=== PATIENT | female | born 1990 | race Caucasian/White ===

== ENCOUNTER 2018-05-19 03:37 | Inpatient (IN) | payer OTHER ==
[2018-05-19] MEDS ORDERED: MISOPROSTOL 200 MCG TAB PR (04:30)
[2018-05-19] MEDS ORDERED: CARBOPROST 250 MCG INJ IM (04:30)
[2018-05-19] MEDS ORDERED: IBUPROFEN 600 MG TAB PO (04:30)
[2018-05-19] MEDS: LACTATED RINGER'S 1,000 ML IV* (04:30)
[2018-05-19] MEDS ORDERED: OXYTOCIN 30 UNITS/LR 500 ML IV ×2 (04:30)
[2018-05-19] MEDS ORDERED: LIDOCAINE 1% (MPF) 30 ML INJ INJ (04:30)
[2018-05-19] MEDS ORDERED: METHYLERGONOVINE 0.2 MG INJ IM (04:30)
[2018-05-19 05:18] LABS: ADD MAN DIFF? NO
[2018-05-19 05:23] LABS: WHITE BLOOD COUNT 7.4 10^3/ul (4.8-10.8)
[2018-05-19 05:23] LABS: BASOPHILS % 0.3 % (0.0-2.0); EOSINOPHILS # 0.1 10^3/ul (0.0-0.5); EOSINOPHILS % 0.8 % (0.0-7.0); HEMATOCRIT 32.5 % (37.0-47.0); HEMOGLOBIN 10.1 g/dl (12.0-16.0); LYMPHOCYTES # 2.7 10^3/ul (0.8-2.9); MEAN CORPUSCULAR HEMOGLOBIN 27.3 pg (29.0-33.0); MEAN CORPUSCULAR HGB CONC 31.1 g/dl (32.0-37.0); MEAN CORPUSCULAR VOLUME 87.8 fl (82.0-101.0); MEAN PLATELET VOLUME 11.2 fl (7.4-10.4); MONOCYTE # 0.5 10^3/ul (0.3-0.9); MONOCYTES % 6.6 % (0.0-11.0); NEUTROPHIL # 4.1 10^3/ul (1.6-7.5); NEUTROPHILS % 55.9 % (39.0-77.0); NUCLEATED RED BLOOD CELLS% 0.3 /100WBC (0.0-0.0); PLATELET COUNT 270 10^3/UL (140-415); RED CELL DISTRIBUTION WIDTH 16.7 % (11.5-14.5)
[2018-05-19] MEDS: AMPICILLIN 2 GM/NS (PMX) 100 ML IV (05:26)
[2018-05-19 05:46] LABS: INR 0.98; PROTIME 13.1 Sec (11.9-14.9)
[2018-05-19 05:47] LABS: PARTIAL THROMBOPLASTIN TIME 26.2 Sec (25.0-35.0)
[2018-05-19 05:51] LABS: ALANINE AMINOTRANSFERASE 28 IU/L (13-69); ALBUMIN 3.2 g/dl (3.3-4.9); ALKALINE PHOSPHATASE 216 IU/L (42-121); ANION GAP 11 (8-16); ASPARTATE AMINO TRANSFERASE 26 IU/L (15-46); BILIRUBIN,INDIRECT 0.3 mg/dl (0-1.1); BILIRUBIN,TOTAL 0.3 mg/dl (0.2-1.3); BLOOD UREA NITROGEN 9 mg/dl (7-20); CALCIUM 8.8 mg/dl (8.4-10.2); CARBON DIOXIDE 22 mmol/L (21-31); CHLORIDE 112 mmol/L (97-110); CREATININE 0.53 mg/dl (0.44-1.00); GLUCOSE 78 mg/dl (70-220); POTASSIUM 3.9 mmol/L (3.5-5.1); SODIUM 141 mmol/L (135-144); TOTAL PROTEIN 6.4 g/dl (6.1-8.1)
[2018-05-19 06:22] LABS: HEPATITIS B SURFACE ANTIGEN NEGATIVE (NEGATIVE)
[2018-05-19 07:45] LABS: ADD UMIC YES; UR ASCORBIC ACID NEGATIVE (NEGATIVE); UR BACTERIA FEW /HPF (NONE SEEN); UR BILIRUBIN (Dip) NEGATIVE (NEGATIVE); UR BLOOD (Dip) 3+ mg/dL (NEGATIVE); UR CLARITY CLOUDY (CLEAR); UR COLOR YELLOW (YELLOW); UR GLUCOSE (Dip) NEGATIVE (NEGATIVE); UR KETONES (Dip) NEGATIVE (NEGATIVE); UR LEUKOCYTE ESTERASE (Dip) NEGATIVE Leu/ul (NEGATIVE); UR MUCUS FEW /HPF (NONE SEEN); UR NITRITE (Dip) NEGATIVE (NEGATIVE); UR RBC > 182 /HPF (0-5); UR SPECIFIC GRAVITY (Dip) 1.024 (1.003-1.030); UR SQUAMOUS EPITHELIAL CELL MANY /HPF (FEW); UR TOTAL PROTEIN (Dip) 2+ mg/dl (NEGATIVE); UR UROBILINOGEN (Dip) NEGATIVE (NEGATIVE); UR WBC 11 /HPF (0-5)
[2018-05-19 07:58] LABS: AMPHETAMINE/METHAMPHETAMINE Negative (NEGATIVE); BARBITURATES Negative (NEGATIVE); BENZODIAZEPINES Negative (NEGATIVE); CANNABINOIDS Negative (NEGATIVE); COCAINE Negative (NEGATIVE); OPIATES Negative (NEGATIVE)
[2018-05-19] MEDS: BUTORPHANOL 2 MG INJ IV (08:10)
[2018-05-19] MEDS: AMPICILLIN 1 GM/NS (PMX) 50 ML IV (10:22)
[2018-05-19] MEDS: OXYTOCIN 30 UNITS/LR 500 ML IV ×3 (10:41→14:56)
[2018-05-19] MEDS: LACTATED RINGER'S 1,000 ML IV (12:18)
[2018-05-19] MEDS ORDERED: OXYCODONE/ASPIRIN (4.88/325) TAB PO ×2 (15:00)
[2018-05-19] MEDS ORDERED: LANOLIN 7 GM TUBE TOP (15:00)
[2018-05-19] MEDS ORDERED: BENZOCAINE 20% 56 ML SPRAY TOP (15:00)
[2018-05-19] MEDS ORDERED: ONDANSETRON 4 MG INJ IV (15:00)
[2018-05-19] MEDS ORDERED: HYDROCODONE/APAP (5/325) TAB PO ×2 (15:00)
[2018-05-19] MEDS ORDERED: WITCH HAZEL/GLYCERIN PAD PR (15:00)
[2018-05-19] MEDS ORDERED: DIBUCAINE 1% 30 GM OINT PR (15:00)
[2018-05-19] MEDS ORDERED: ACETAMINOPHEN 325 MG TAB PO (15:00)
[2018-05-19] MEDS: IBUPROFEN 600 MG TAB PO ×2 (17:46→23:32)
[2018-05-19] MEDS: SENNA/DOCUSATE NA (8.6MG/50MG) TAB PO (20:47)
[2018-05-19] MEDS: DIPHENHYDRAMINE 50 MG INJ IM (23:32)
[2018-05-20] MEDS: IBUPROFEN 600 MG TAB PO ×3 (05:43→17:24)
[2018-05-20 07:20] LABS: ADD MAN DIFF? NO
[2018-05-20 07:23] LABS: BASOPHILS % 0.4 % (0.0-2.0); EOSINOPHILS # 0.1 10^3/ul (0.0-0.5); EOSINOPHILS % 0.5 % (0.0-7.0); HEMATOCRIT 30.9 % (37.0-47.0); HEMOGLOBIN 9.7 g/dl (12.0-16.0); LYMPHOCYTES # 2.8 10^3/ul (0.8-2.9); LYMPHOCYTES % 27.9 % (15.0-51.0); MEAN CORPUSCULAR HEMOGLOBIN 27.2 pg (29.0-33.0); MEAN CORPUSCULAR HGB CONC 31.4 g/dl (32.0-37.0); MEAN CORPUSCULAR VOLUME 86.6 fl (82.0-101.0); MONOCYTE # 0.7 10^3/ul (0.3-0.9); MONOCYTES % 6.8 % (0.0-11.0); NEUTROPHIL # 6.3 10^3/ul (1.6-7.5); NEUTROPHILS % 63.7 % (39.0-77.0); NUCLEATED RED BLOOD CELLS% 0.4 /100WBC (0.0-0.0); PLATELET COUNT 227 10^3/UL (140-415); RED BLOOD COUNT 3.57 10^6/ul (4.20-5.40); RED CELL DISTRIBUTION WIDTH 17.2 % (11.5-14.5)
[2018-05-20 07:23] LABS: WHITE BLOOD COUNT 9.9 10^3/ul (4.8-10.8)
[2018-05-20] MEDS: SENNA/DOCUSATE NA (8.6MG/50MG) TAB PO ×2 (08:15→21:00)
[2018-05-20] MEDS: DIPHTH/TET/ACEL PERTUSS (ADULT) 0.5 ML VIAL IM* (10:48)
[2018-05-20 17:33] LABS: RAPID PLASMA REAGIN NONREACTIVE (NR)
[2018-05-21] MEDS: IBUPROFEN 600 MG TAB PO ×3 (00:12→11:26)
[2018-05-21] MEDS: SENNA/DOCUSATE NA (8.6MG/50MG) TAB PO (08:59)
[2018-05-21] MEDS: MEASLES,MUMPS,RUBELLA VACCINE INJ SC* (09:40)
== END 2018-05-21 14:00 | disposition home or self-care (01) | DRG 775 ==
LOC: OBT 03:37 → L-D 03:38 → OBT 04:13 → L-D 04:16 → PP1 14:37
PROC: 10E0XZZ Delivery of Products of Conception, External Approach (ICD-10-PCS; principal; 2018-05-19)
PROC: 3E0234Z Introduction of Serum, Toxoid and Vaccine into Muscle, Percutaneous Approach (ICD-10-PCS; 2018-05-20)
DX: O69.81X0 Labor and delivery complicated by cord around neck, without compression, not applicable or unspecified (principal); O13.4 Gestational [pregnancy-induced] hypertension without significant proteinuria, complicating childbirth; Z3A.38 38 weeks gestation of pregnancy; Z37.0 Single live birth; Z23 Encounter for immunization
CPT/HCPCS: 36415; 76815; 80053; 80307; 81001; 84560; 85025; 85610; 85730; 86592; 86850; 86900; 86901; 87340; 90715